=== PATIENT | female | born 1995 | race Caucasian/White ===

== ENCOUNTER 2018-04-12 12:19 | Inpatient (IN) | payer BC ==
[2018-04-12] MEDS ORDERED: Sodium Chloride 0.9% 10 ML Syringe FLUSH PRN (12:43)
[2018-04-12] MEDS ORDERED: Nalbuphine 20 MG/ML 1 ML Syringe IVPUSH PRN (12:43)
[2018-04-12] MEDS ORDERED: Ondansetron 4 MG/2 ML SDV IVPUSH PRN (12:43)
[2018-04-12] MEDS ORDERED: Oxytocin/Lactated Ringers 10 UNIT/1,000 ML BAG IV SCH ×2 (12:45→21:15)
--- NOTE | 2018-04-12 12:46 | PCM.LDHP ---
L&D History of Present Illness - General Date of Service: 04/12/18 Admit Problem/Dx: Patient Status Order with Admit Dx/Problem 04/12/18 12:26 Patient Status [ADT] Routine 04/12/18 12:43 Patient Status [ADT] Routine Admission Diagnosis/Problem Admission Diagnosis/Problem Normal in third trimester Source of Information: Patient History Limitations: Reports: No Limitations - History of Present Illness Introduction:: Carrie is a 22-year-old at 39-5/7 weeks gestation who presents today in labor. States contractions started early this morning and have been progressively getting stronger and closer together. No loss of fluid. No vaginal bleeding. Past Medical History [employer] SU[employer]OR History: Reports: , Spontaneous : 3 Para: 0 LMP (Approximate): Psychiatric History: Reports: Depression, Eating Disorders - Past Surgical History Female Surgical History: Reports: D&C Social & Family History - Tobacco Use Smoking Status *Q: Never Smoker - Alcohol Use Alcohol Use History: No - Recreational Drug Use Recreational Drug Use: No H&P Review of Systems - Review of Systems: Review Of Systems: See Below General: Reports: No Symptoms Pulmonary: Reports: No Symptoms Cardiovascular: Reports: No Symptoms Gastrointestinal: Reports: Abdominal Pain Genitourinary: Reports: No Symptoms Musculoskeletal: Reports: No Symptoms Neurological: Reports: No Symptoms L&D Exam - Exam Exam: See Below - OB Specific Contraction Intensity: Moderate Movement: Active Heart Tones: Present Heart Tones per Min: 125 Heart Rate (FHR) Variability: Moderate (6-25 bmp) Presentation: Vertex - Almazan Score Almazan Score Cervix Position: Posterior Almazan Score Consistency: Soft Almazan Score Effacement: >80% Almazan Score Dilation: 3-4 cm Almazan Score 's Station: -1 ,0 Almazan Score Total: 9 - Exam General: Alert, Oriented, Cooperative Lungs: Clear to Auscultation, Normal Respiratory Effort Cardiovascular: Regular Rate, Regular Rhythm GI/Abdominal Exam: Soft, Non-Tender Genitourinary: Normal external exam Extremities: Normal Inspection Skin: Warm, Dry, Intact - Problem List (1) 39 weeks gestation of SNOMED Code(s): 13961416 ICD Code: Z3A.39 - 39 WEEKS GESTATION OF Status: Acute Current Visit: Yes (2) GBS (group B Streptococcus carrier), +RV culture, currently SNOMED Code(s): 3154669148339, 823101440, 1719289656192 ICD Code: O99.820 - STREPTOCOCCUS B CARRIER STATE COMPLICATING Status: Acute Current Visit: Yes (3) Rh negative state in antepartum period SNOMED Code(s): 129984804 ICD Code: O09.899 - SUPERVISION OF OTHER HIGH RISK PREGNANCIES, UNSP TRIMESTER; Z67.91 - UNSPECIFIED BLOOD TYPE, RH NEGATIVE Status: Acute Current Visit: Yes (4) Normal labor SNOMED Code(s): 92692021 ICD Code: O80 - ENCOUNTER FOR FULL-TERM UNCOMPLICATED DELIVERY; Z37.9 - OUTCOME OF DELIVERY, UNSPECIFIED Status: Acute Current Visit: Yes Problem List Initiated/Reviewed/Updated: Yes Orders Last 24hrs: Active Orders 24 hr Category Date Time Status Patient Status [ADT] Routine ADT 04/12/18 12:26 Active Patient Status [ADT] Routine ADT 04/12/18 12:43 Ordered Activity as Tolerated [RC] PFP Care 04/12/18 12:43 Ordered Communication Order [RC] ASDIRECTED Care 04/12/18 12:43 Ordered Heart Tones [RC] ASDIRECTED Care 04/12/18 12:43 Ordered Non Stress Test [RC] PER UNIT ROUTINE Care 04/12/18 12:26 Ordered Notify Provider [RC] PFP Care 04/12/18 12:43 Ordered Notify Provider [RC] PRN Care 04/12/18 12:43 Ordered Peripheral IV Care [RC] . DIRECTED Care 04/12/18 12:43 Ordered Vital Signs [RC] PER UNIT ROUTINE Care 04/12/18 12:26 Ordered Vital Signs [RC] PER UNIT ROUTINE Care 04/12/18 12:43 Ordered Regular Diet [DIET] Diet 04/12/18 Lunch Ordered CBC W/O DIFF,HEMOGRAM [HEME] Stat Lab 04/12/18 12:43 Ordered RAPID PLASMA REAGIN,RPR [CHEM] Stat Lab 04/12/18 12:43 Ordered TYPE AND SCREEN [BBK] Stat Lab 04/12/18 12:43 Ordered Lactated Ringers [Ringers, Lactated] 1,000 ml Med 04/12/18 12:45 Ordered IV ASDIRECTED Nalbuphine [Nubain] Med 04/12/18 12:43 Ordered 10 mg IVPUSH Q2H PRN Ondansetron [Zofran] Med 04/12/18 12:43 Ordered 4 mg IVPUSH Q4H PRN Oxytocin/Lactated Ringers [Pitocin in LR 10 Units/1,000 Med 04/12/18 12:45 Ordered ML] 10 unit in 1,000 ml IV .CONTINUOUS Penicillin G Potassium [Pfizerpen] 2.5 millunits Med 04/12/18 12:45 Ordered Sodium Chloride 0.9% [Normal Saline] 100 ml IV Q4H Penicillin G Potassium [Pfizerpen] 5 millunits Med 04/12/18 12:45 Ordered Sodium Chloride 0.9% [Normal Saline] 100 ml IV ONETIME Sodium Chloride 0.9% [Saline Flush] Med 04/12/18 12:43 Ordered 10 ml FLUSH ASDIRECTED PRN Electronic Heart Tones Ext w TOCO [WOMSER] Oth 04/12/18 12:43 Ordered Routine Electronic Heart Tones Internal [WOMSER] Per Unit Ot 04/12/18 12:43 Ordered Routine Peripheral IV Insertion Adult [OM.PC] Routine Oth 04/12/18 12:43 Ordered Resuscitation Status Routine Resus Stat 04/12/18 12:26 Ordered Medication Orders Lactated Ringer's (Ringers, Lactated) 1,000 mls @ 100 mls/hr IV ASDIRECTED BRAYAN Penicillin G Potassium 5 (millunits/ Sodium Chloride) 100 mls @ 55 mls/hr IV ONETIME BRAYAN Penicillin G Potassium 2.5 (millunits/ Sodium Chloride) 100 mls @ 55 mls/hr IV Q4H BRAYAN Oxytocin/Lactated Ringer's (Pitocin In Lr 10 Units/1,000 Ml) 10 unit in 1,000 mls @ 500 mls/hr IV .CONTINUOUS BRAYAN Nalbuphine HCl (Nubain) 10 mg IVPUSH Q2H PRN PRN Reason: Pain (moderate 4-6) Ondansetron HCl (Zofran) 4 mg IVPUSH Q4H PRN PRN Reason: Nausea/Vomiting Sodium Chloride (Saline Flush) 10 ml FLUSH ASDIRECTED PRN PRN Reason: Keep Vein Open Assessment/Plan Comment:: Patient is a 22-year-old at 39-5/7 weeks gestation who presents in labor * CBC, type and screen, RPR * GBS positive, will start penicillin for prophylaxis * Pain management per patient preference * Rh-, will assess baby's blood type following delivery to see if Rhogam required * Anticipate
--- NOTE | 2018-04-12 13:56 | PCM.PREANE ---
Preanesthetic Assessment - Anesthesia/Transfusion/Family Hx Anesthesia History: Prior Anesthesia Without Reaction Family History of Anesthesia Reaction: No Transfusion History: No Prior Transfusion(s) - Review of Systems General: No Symptoms Pulmonary: No Symptoms Cardiovascular: No Symptoms Gastrointestinal: No Symptoms Neurological: No Symptoms Other: Reports: None - Physical Assessment Pulse: 89 O2 Sat by Pulse Oximetry: 100 Respiratory Rate: 16 Blood Pressure: 137/83 Temperature: 36.6 C Vital Signs: Last Vital Signs Temp 36.6 C 04/12/18 12:35 Pulse 79 04/12/18 12:35 Resp 16 04/12/18 12:35 BP 137/83 04/12/18 12:35 Pulse Ox 100 04/12/18 12:35 Height: 1.75 m Weight: 77.337 kg ASA Class: 2 Mental Status: Alert & Oriented x3 Airway Class: Mallampati = 1 Dentition: Reports: Normal Dentition Thyro-Mental Finger Breadths: 3 Mouth Opening Finger Breadths: 3 ROM/Head Extension: Full Lungs: Clear to Auscultation, Normal Respiratory Effort Cardiovascular: Regular Rate, Regular Rhythm - Lab Values: Laboratory Last Values WBC 13.76 K/mm3 (3.98-10.04) H 04/12/18 12:57 RBC 3.96 M/mm3 (3.98-5.22) L 04/12/18 12:57 Hgb 10.6 gm/L (11.2-15.7) L 04/12/18 12:57 Hct 32.5 % (34.1-44.9) L 04/12/18 12:57 MCV 82.1 fl (79.4-94.8) 04/12/18 12:57 MCH 26.8 pg (25.6-32.2) 04/12/18 12:57 MCHC 32.6 g/dl (32.2-35.5) 04/12/18 12:57 RDW Std Deviation 41.2 fL (36.4-46.3) 04/12/18 12:57 Plt Count 318 K/mm3 (182-369) 04/12/18 12:57 MPV 8.8 fl (9.4-12.3) L 04/12/18 12:57 Blood Type O NEGATIVE 04/12/18 12:57 Gel Antibody Screen Positive 04/12/18 12:57 - Allergies Allergies/Adverse Reactions: Allergies Allergy/AdvReac Type Severity Reaction Status Date / Time No Known Allergies Allergy Verified 04/12/18 13:30 - Anesthesia Plan Pre-Op Medication Ordered: None - Acknowledgements Anesthesia Type Planned: Epidural Pt an Appropriate Candidate for the Planned Anesthesia: Yes Alternatives and Risks of Anesthesia Discussed w Pt/Guardian: Yes Pt/Guardian Understands and Agrees with Anesthesia Plan: Yes PreAnesthesia Questionnaire Gastrointestinal History: Reports: GERD 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: , 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 Psychiatric History: Reports: Depression, Eating Disorders - Past Surgical History Female Surgical History: Reports: D&C - SUBSTANCE USE Smoking Status *Q: Never Smoker Second Hand Smoke Exposure: No Recreational Drug Use History: No - CURRENT (IN HOUSE) MEDS Current Meds: Current Medications Lactated Ringer's (Ringers, Lactated) 1,000 mls @ 100 mls/hr IV ASDIRECTED BRAYAN Penicillin G Potassium 5 (millunits/ Sodium Chloride) 100 mls @ 55 mls/hr IV ONETIME BRAYAN Penicillin G Potassium 2.5 (millunits/ Sodium Chloride) 100 mls @ 55 mls/hr IV Q4H BRAYAN Oxytocin/Lactated Ringer's (Pitocin In Lr 10 Units/1,000 Ml) 10 unit in 1,000 mls @ 500 mls/hr IV .CONTINUOUS BRAYAN Nalbuphine HCl (Nubain) 10 mg IVPUSH Q2H PRN PRN Reason: Pain (moderate 4-6) Ondansetron HCl (Zofran) 4 mg IVPUSH Q4H PRN PRN Reason: Nausea/Vomiting Sodium Chloride (Saline Flush) 10 ml FLUSH ASDIRECTED PRN PRN Reason: Keep Vein Open
[2018-04-12] MEDS ORDERED: ePHEDrine 50 MG/ML SDV IVPUSH PRN (13:57)
[2018-04-12] MEDS ORDERED: fentaNYL 100 MCG/2 ML SDV EPIDUR PRN (13:57)
[2018-04-12] MEDS ORDERED: diphenhydrAMINE 50 MG/ML SDV IVPUSH PRN (13:57)
[2018-04-12] MEDS ORDERED: Bupivacaine/fentaNYL/NS 100 ML Bag EPIDUR SCH (14:00)
[2018-04-12] MEDS ORDERED: Penicillin G Potassium 5 MILLUNITS in Sodium Chloride 0.9% 100 ML IV SCH (14:00)
[2018-04-12] MEDS: Lactated Ringers 1,000 ML IV SCH ×3 (14:02→19:53)
--- NOTE | 2018-04-12 17:14 | PCM.PNLD ---
Labor Progress Note - VS & Meds Vital Signs: Last Vital Signs Temp 36.6 C 04/12/18 13:56 Pulse 89 04/12/18 13:56 Resp 16 04/12/18 13:56 BP 137/83 04/12/18 13:56 Pulse Ox 100 04/12/18 13:56 Active Medications: Current Medications Diphenhydramine HCl (Benadryl) 25 mg IVPUSH Q6H PRN PRN Reason: Itching Ephedrine Sulfate (Ephedrine Sulfate) 5 mg IVPUSH ASDIRECTED PRN PRN Reason: HYPOTENTSION Fentanyl (Sublimaze) 100 mcg EPIDUR Q3H PRN PRN Reason: Pain Last Admin: 04/12/18 16:40 Dose: 100 mcg Fentanyl/Bupivacaine HCl (Fentanyl/Bupivacaine/Ns 2 Mcg-0.125% 100 Ml) 100 ml EPIDUR ASDIRECTED BRAYAN Last Admin: 04/12/18 16:41 Dose: 100 ml Lactated Ringer's (Ringers, Lactated) 1,000 mls @ 100 mls/hr IV ASDIRECTED BRAYAN Last Admin: 04/12/18 16:18 Dose: 100 mls/hr Penicillin G Potassium 5 (millunits/ Sodium Chloride) 100 mls @ 55 mls/hr IV ONETIME BRAYAN Last Admin: 04/12/18 14:02 Dose: 55 mls/hr Penicillin G Potassium 2.5 (millunits/ Sodium Chloride) 100 mls @ 55 mls/hr IV Q4H BRAYAN Oxytocin/Lactated Ringer's (Pitocin In Lr 10 Units/1,000 Ml) 10 unit in 1,000 mls @ 500 mls/hr IV .CONTINUOUS BRAYAN Nalbuphine HCl (Nubain) 10 mg IVPUSH Q2H PRN PRN Reason: Pain (moderate 4-6) Ondansetron HCl (Zofran) 4 mg IVPUSH Q4H PRN PRN Reason: Nausea/Vomiting Sodium Chloride (Saline Flush) 10 ml FLUSH ASDIRECTED PRN PRN Reason: Keep Vein Open - Uterine Contractions Uterine Monitoring Mode: External [place] Contraction Intensity: Moderate - Monitoring Monitor Mode: External Ultrasound Heart Rate (FHR) Baseline: 130 Heart Rate (FHR) Variability: Moderate (6-25 bmp) Accelerations: Present, 15x15 Decelerations: None Strip Review: Category I - Vaginal Exam Dilation (cm): 4 Effacement (Percent): 80 Station: 0 Cervical Position: Midposition - Labor Progress (Free Text) Labor Progress: Doing well. Comfortable with epidural. AROM performed. Continue present management
[2018-04-12] MEDS: Penicillin G Potassium 2.5 MILLUNITS in Sodium Chloride 0.9% 100 ML IV SCH (18:32)
[2018-04-12] MEDS ORDERED: Bupivacaine 0.25% 10 ML SDV ONE (22:00)
--- NOTE | 2018-04-12 22:19 | PCM.DEL ---
L & D Note - General Info Date of Service: 04/12/18 - Delivery Note Labor: Spontaneous, Augmented by ARM Delivery Outcome: Livebirth Infant Delivery Method: Spontaneous Vaginal Delivery-Single Infant Delivery Mode: Vacuum Extraction Presentation: Right Occiput Anterior (NANCY) Nuchal Cord: None Anesthesia Type: Epidural Amniotic Fluid Description: Clear Episiotomy Type: None Laceration: None Placenta: Intact, Spontaneous Cord: 3 Vessels Estimated Blood Loss: 250 Resuscitation Needed: Yes [place]: Bulb Syringe, Stimulated, Warmed, Warner Used, Warmer Used Score 1 min: 7 Score 5 min: 9 Delivery Comments (Free Text/Narrative):: The patient was pushing in the dorsal lithotomy position. Sterile vaginal exam complete/complete/+3 station. head in NANCY presentation. Maternal pushing effort was good and the pelvis was felt to be adequate for an instrument assisted delivery. Given concerns for compromise the decision was made to proceed with vacuum assisted vaginal delivery. The mushroom cup was placed without difficulty with care to avoid the vaginal side braswell. Subsequent vacuum assisted vaginal delivery with pushing over 2 minutes. Total pressure applied 550 mm Hg. Total pop offs 0. Suction was removed following delivery of the head. No nuchal cord present. The remainder of the delivered without difficulty. The umbilical cord was clamped and cut and the was placed on maternal abdomen. Placenta allowed time to separate and expelled intact. Inspection of the perineum following delivery with no lacerations. - General Info Date of Service: 04/13/18 - Patient Data Vitals - Most Recent: Last Vital Signs Temp 36.6 C 04/12/18 13:56 Pulse 89 04/12/18 13:56 Resp 16 04/12/18 13:56 BP 137/83 04/12/18 13:56 Pulse Ox 100 04/12/18 13:56 Weight - Most Recent: 77.337 kg I&O - Last 24 Hours: Intake & Output 04/12/18 04/12/18 04/12/18 06:59 14:59 22:59 Intake Total 1100 Balance 1100 Lab Results Last 24 Hours: Laboratory Results - last 24 hr 04/12/18 04/12/18 Range/Units 12:57 12:57 WBC 13.76 H (3.98-10.04) K/mm3 RBC 3.96 L (3.98-5.22) M/mm3 Hgb 10.6 L (11.2-15.7) gm/L Hct 32.5 L (34.1-44.9) % MCV 82.1 (79.4-94.8) fl MCH 26.8 (25.6-32.2) pg MCHC 32.6 (32.2-35.5) g/dl RDW Std Deviation 41.2 (36.4-46.3) fL Plt Count 318 (182-369) K/mm3 MPV 8.8 L (9.4-12.3) fl Blood Type O NEGATIVE Gel Antibody Screen Positive Med Orders - Current: Current Medications Diphenhydramine HCl (Benadryl) 25 mg IVPUSH Q6H PRN PRN Reason: Itching Ephedrine Sulfate (Ephedrine Sulfate) 5 mg IVPUSH ASDIRECTED PRN PRN Reason: HYPOTENTSION Fentanyl (Sublimaze) 100 mcg EPIDUR Q3H PRN PRN Reason: Pain Last Admin: 04/12/18 16:40 Dose: 100 mcg Fentanyl/Bupivacaine HCl (Fentanyl/Bupivacaine/Ns 2 Mcg-0.125% 100 Ml) 100 ml EPIDUR ASDIRECTED BRAYAN Last Admin: 04/12/18 16:41 Dose: 100 ml Lactated Ringer's (Ringers, Lactated) 1,000 mls @ 100 mls/hr IV ASDIRECTED BRAYAN Last Admin: 04/12/18 19:53 Dose: 100 mls/hr Penicillin G Potassium 5 (millunits/ Sodium Chloride) 100 mls @ 55 mls/hr IV ONETIME BRAYAN Last Admin: 04/12/18 14:02 Dose: 55 mls/hr Penicillin G Potassium 2.5 (millunits/ Sodium Chloride) 100 mls @ 55 mls/hr IV Q4H BRAYAN Last Admin: 04/12/18 18:32 Dose: 55 mls/hr Oxytocin/Lactated Ringer's (Pitocin In Lr 10 Units/1,000 Ml) 10 unit in 1,000 mls @ 500 mls/hr IV .CONTINUOUS BRAYAN Oxytocin/Lactated Ringer's (Pitocin In Lr 10 Units/1,000 Ml) 10 unit in 1,000 mls @ 12 mls/hr IV TITRATE BRAYAN; Protocol Last Admin: 04/12/18 21:17 Dose: 2 munits/min, 12 mls/hr Nalbuphine HCl (Nubain) 10 mg IVPUSH Q2H PRN PRN Reason: Pain (moderate 4-6) Ondansetron HCl (Zofran) 4 mg IVPUSH Q4H PRN PRN Reason: Nausea/Vomiting Sodium Chloride (Saline Flush) 10 ml FLUSH ASDIRECTED PRN PRN Reason: Keep Vein Open - Problem List & Annotations (1) 39 weeks gestation of SNOMED Code(s): 35746184 Code(s): Z3A.39 - 39 WEEKS GESTATION OF Status: Acute Current Visit: Yes (2) GBS (group B Streptococcus carrier), +RV culture, currently SNOMED Code(s): 1403500794315, 743180297, 1062871485388 Code(s): O99.820 - STREPTOCOCCUS B CARRIER STATE COMPLICATING Status: Acute Current Visit: Yes (3) Rh negative state in antepartum period SNOMED Code(s): 634109992 Code(s): O09.899 - SUPERVISION OF OTHER HIGH RISK PREGNANCIES, UNSP TRIMESTER ; Z67.91 - UNSPECIFIED BLOOD TYPE, RH NEGATIVE Status: Acute Current Visit: Yes (4) Normal labor SNOMED Code(s): 11724493 Code(s): O80 - ENCOUNTER FOR FULL-TERM UNCOMPLICATED DELIVERY; Z37.9 - OUTCOME OF DELIVERY, UNSPECIFIED Status: Acute Current Visit: Yes - Problem List Review Problem List Initiated/Reviewed/Updated: Yes - My Orders Last 24 Hours: My Active Orders 04/12/18 12:26 Patient Status [ADT] Routine Non Stress Test [RC] PER UNIT ROUTINE Vital Signs [RC] PER UNIT ROUTINE Resuscitation Status Routine 04/12/18 12:43 Patient Status [ADT] Routine Activity as Tolerated [RC] PFP Communication Order [RC] ASDIRECTED Heart Tones [RC] ASDIRECTED Notify Provider [RC] PFP Notify Provider [RC] PRN Vital Signs [RC] PER UNIT ROUTINE Nalbuphine [Nubain] 10 mg IVPUSH Q2H PRN Ondansetron [Zofran] 4 mg IVPUSH Q4H PRN Sodium Chloride 0.9% [Saline Flush] 10 ml FLUSH ASDIRECTED PRN Electronic Heart Tones Ext w TOCO [WOMSER] Routine Electronic Heart Tones Internal [WOMSER] Per Unit Routine Peripheral IV Insertion Adult [OM.PC] Routine 04/12/18 12:45 Lactated Ringers [Ringers, Lactated] 1,000 ml IV ASDIRECTED Oxytocin/Lactated Ringers [Pitocin in LR 10 Units/1,000 ML] 10 unit in 1,000 ml IV .CONTINUOUS 04/12/18 12:57 ANTIBODY IDENTIFICATION [BBK] Stat PATIENT RETYPE [BBK] Stat RAPID PLASMA REAGIN,RPR [CHEM] Stat TYPE AND SCREEN [BBK] Stat 04/12/18 14:00 Penicillin G Potassium [Pfizerpen] 5 millunits Sodium Chloride 0.9% [Normal Saline] 100 ml IV ONETIME 04/12/18 18:00 Penicillin G Potassium [Pfizerpen] 2.5 millunits Sodium Chloride 0.9% [Normal Saline] 100 ml IV Q4H 04/12/18 21:15 Oxytocin/Lactated Ringers [Pitocin in LR 10 Units/1,000 ML] 10 unit in 1,000 ml IV TITRATE 04/12/18 Lunch Regular Diet [DIET] - Assessment Assessment:: 22 y/o who is PPD#0 from VAVD from 39 5/7 wks - Plan Plan:: VAVD * Patient with fever to 102 immediately following delivery. Will give one dose of Clindamycin and Gentamicin. Continue to monitor closely. Pediatrics to be made aware. * Encourage breast feeding * Routine cares * Rh negative. Baby Rh positive. Will need Rhogam * Discharge home tomorrow
[2018-04-12] MEDS ORDERED: Acetaminophen 325 MG Tab PO PRN (22:33)
[2018-04-12] MEDS ORDERED: Docusate Sodium 100 MG Cap PO PRN (22:33)
[2018-04-12] MEDS ORDERED: Witch Hazel Medicated Pads 100/Jar TOP PRN (22:33)
[2018-04-12] MEDS ORDERED: Lanolin 100% Cream 7 GM Tube TOP PRN (22:33)
[2018-04-12] MEDS ORDERED: Benzocaine/Menthol 20%-0.5% Spray 56 GM Canister TOP PRN (22:33)
[2018-04-12] MEDS: Ibuprofen 600 MG Tab PO PRN (22:37)
[2018-04-13] MEDS ORDERED: Clindamycin Phosphate 900 MG in Sodium Chloride 0.9% 100 ML IV SCH ×2 (02:30→06:00)
[2018-04-13] MEDS: Penicillin G Potassium 2.5 MILLUNITS in Sodium Chloride 0.9% 100 ML IV SCH (05:50)
--- NOTE | 2018-04-13 07:37 | PCM.PNPP ---
- General Info Date of Service: 04/13/18 Functional Status: Reports: Pain Controlled, Tolerating Diet, Ambulating, Urinating - Review of Systems General: Reports: No Symptoms Pulmonary: Reports: No Symptoms Cardiovascular: Reports: No Symptoms Gastrointestinal: Reports: No Symptoms Genitourinary: Reports: No Symptoms Musculoskeletal: Reports: No Symptoms Neurological: Reports: No Symptoms - Patient Data Vital Signs - Most Recent: Last Vital Signs Temp 36.6 C 04/13/18 02:46 Pulse 65 04/13/18 02:46 Resp 14 04/13/18 02:46 BP 118/85 04/13/18 02:46 Pulse Ox 97 04/13/18 02:46 Weight - Most Recent: 77.337 kg I&O - Last 24 Hours: Intake & Output 04/12/18 04/13/18 04/13/18 22:59 06:59 14:59 Intake Total 1100 100 Balance 1100 100 Lab Results - Last 24 Hours: Laboratory Results - last 24 hr 04/12/18 04/12/18 04/13/18 Range/Units 12:57 12:57 03:27 WBC 13.76 H (3.98-10.04) K/mm3 RBC 3.96 L (3.98-5.22) M/mm3 Hgb 10.6 L (11.2-15.7) gm/L Hct 32.5 L (34.1-44.9) % MCV 82.1 (79.4-94.8) fl MCH 26.8 (25.6-32.2) pg MCHC 32.6 (32.2-35.5) g/dl RDW Std Deviation 41.2 (36.4-46.3) fL Plt Count 318 (182-369) K/mm3 MPV 8.8 L (9.4-12.3) fl Blood Type O NEGATIVE O NEGATIVE Gel Antibody Screen Positive Positive Rhogam Indicated Yes, baby rh unknown H Med Orders - Current: Current Medications Acetaminophen (Tylenol) 650 mg PO Q4H PRN PRN Reason: mild pain or fever Last Admin: 04/13/18 00:10 Dose: 650 mg Benzocaine/Menthol (Dermoplast Pain Relief [place]) 0 gm TOP ASDIRECTED PRN PRN Reason: Perineal Comfort Measure Last Admin: 04/13/18 00:09 Dose: 1 canister Docusate Sodium (Colace) 100 mg PO BID PRN PRN Reason: Constipation Emollient Ointment (Lansinoh Hpa) 0 gm TOP ASDIRECTED PRN PRN Reason: Sore Nipples Gentamicin Sulfate (Pharmacy To Dose - Gentamicin) 0 dose .XX ASDIRECTED PRN PRN Reason: RX TO DOSE GENTAMICIN Clindamycin Phosphate 900 mg/ (Sodium Chloride) 106 mls @ 100 mls/hr IV Q8H [facility] Last Admin: 04/13/18 02:41 Dose: 100 mls/hr Gentamicin Sulfate 380 mg/ (Sodium Chloride) 109.5 mls @ 219 mls/hr IV Q24H [facility] Last Admin: 04/13/18 05:00 Dose: 219 mls/hr Ibuprofen (Motrin) 600 mg PO Q6H PRN PRN Reason: Mild pain or fever Last Admin: 04/12/18 22:37 Dose: 600 mg Witch Bindu (Tucks) 1 pad TOP ASDIRECTED PRN PRN Reason: Hemorrhoid pain Last Admin: 04/13/18 00:09 Dose: 1 tub Discontinued Medications Diphenhydramine HCl (Benadryl) 25 mg IVPUSH Q6H PRN PRN Reason: Itching Ephedrine Sulfate (Ephedrine Sulfate) 5 mg IVPUSH ASDIRECTED PRN PRN Reason: HYPOTENTSION Fentanyl (Sublimaze) 100 mcg EPIDUR Q3H PRN PRN Reason: Pain Last Admin: 04/12/18 16:40 Dose: 100 mcg Fentanyl/Bupivacaine HCl (Fentanyl/Bupivacaine/Ns 2 Mcg-0.125% 100 Ml) 100 ml EPIDUR ASDIRECTED [facility] Last Admin: 04/12/18 16:41 Dose: 100 ml Lactated Ringer's (Ringers, Lactated) 1,000 mls @ 100 mls/hr IV ASDIRECTED [facility] Last Admin: 04/12/18 19:53 Dose: 100 mls/hr Penicillin G Potassium 5 (millunits/ Sodium Chloride) 100 mls @ 55 mls/hr IV ONETIME [facility] Last Admin: 04/12/18 14:02 Dose: 55 mls/hr Penicillin G Potassium 2.5 (millunits/ Sodium Chloride) 100 mls @ 55 mls/hr IV Q4H [facility] Last Admin: 04/13/18 05:50 Dose: Not Given Oxytocin/Lactated Ringer's (Pitocin In Lr 10 Units/1,000 Ml) 10 unit in 1,000 mls @ 500 mls/hr IV .CONTINUOUS [facility] Oxytocin/Lactated Ringer's (Pitocin In Lr 10 Units/1,000 Ml) 10 unit in 1,000 mls @ 12 mls/hr IV TITRATE [facility]; Protocol Last Admin: 04/12/18 21:17 Dose: 2 munits/min, 12 mls/hr Nalbuphine HCl (Nubain) 10 mg IVPUSH Q2H PRN PRN Reason: Pain (moderate 4-6) Ondansetron HCl (Zofran) 4 mg IVPUSH Q4H PRN PRN Reason: Nausea/Vomiting Sodium Chloride (Saline Flush) 10 ml FLUSH ASDIRECTED PRN PRN Reason: Keep Vein Open - Interaction Infant Disposition, : [place] in Room with Family Infant Interaction: Holding Infant Feeding: Attempted ; Nursed Fair/Poor Support Person: Significant Other - Recovery Exam Fundal Tone: Firm Fundal Level: 1 Fingerbreadths Below Umbilicus Fundal Placement: Midline Lochia Amount: Small Lochia Color: Rubra/Red Perineum Description: Intact, Minimal Bruising/Swelling Episiotomy/Laceration: None Bladder Status: Voiding - Exam General: Alert, Oriented, Cooperative GI/Abdominal Exam: Soft, Non-Tender Extremities: Normal Inspection Skin: Warm, Dry, Intact - Problem List & Annotations (1) 39 weeks gestation of SNOMED Code(s): 26236507 Code(s): Z3A.39 - 39 WEEKS GESTATION OF Status: Acute Current Visit: Yes (2) GBS (group B Streptococcus carrier), +RV culture, currently SNOMED Code(s): 1817192184896, 156810111, 7595270515087 Code(s): O99.820 - STREPTOCOCCUS B CARRIER STATE COMPLICATING Status: Acute Current Visit: Yes (3) Rh negative state in antepartum period SNOMED Code(s): 166358837 Code(s): O09.899 - SUPERVISION OF OTHER HIGH RISK PREGNANCIES, UNSP TRIMESTER ; Z67.91 - UNSPECIFIED BLOOD TYPE, RH NEGATIVE Status: Acute Current Visit: Yes (4) Normal labor SNOMED Code(s): 93866404 Code(s): O80 - ENCOUNTER FOR FULL-TERM UNCOMPLICATED DELIVERY; Z37.9 - OUTCOME OF DELIVERY, UNSPECIFIED Status: Acute Current Visit: Yes (5) Vacuum extractor delivery, delivered SNOMED Code(s): 134953912 Code(s): O66.5 - ATTEMPTED APPLICATION OF VACUUM EXTRACTOR AND FORCEPS Status: Acute Current Visit: Yes (6) Chorioamnionitis SNOMED Code(s): 71837215 Code(s): O41.1290 - CHORIOAMNIONITIS, UNSP TRIMESTER, NOT APPLICABLE OR UNSP Status: Acute Current Visit: Yes Qualifiers: Fetus number: single or unspecified fetus Trimester: third trimester Qualified Code(s): O41.1230 - Chorioamnionitis, third trimester, not applicable or unspecified - Problem List Review Problem List Initiated/Reviewed/Updated: Yes - My Orders Last 24 Hours: My Active Orders 04/12/18 12:26 Vital Signs [RC] PER UNIT ROUTINE Resuscitation Status Routine 04/12/18 12:43 Heart Tones [RC] ASDIRECTED Vital Signs [RC] PER UNIT ROUTINE 04/12/18 12:57 ANTIBODY IDENTIFICATION [BBK] Stat PATIENT RETYPE [BBK] Stat RAPID PLASMA REAGIN,RPR [CHEM] Stat TYPE AND SCREEN [BBK] Stat 04/12/18 22:33 Activity as Tolerated [RC] PER UNIT ROUTINE Vital Signs [RC] 03,09,15,21 Acetaminophen [Tylenol] 650 mg PO Q4H PRN Benzocaine/Menthol [Dermoplast Pain Relief [place]] See Dose Instructions TOP ASDIRECTED PRN Docusate Sodium [Colace] 100 mg PO BID PRN Ibuprofen [Motrin] 600 mg PO Q6H PRN Lanolin [Lansinoh HPA] See Dose Instructions TOP ASDIRECTED PRN Witch Bindu [Tucks] 1 pad TOP ASDIRECTED PRN Assess Lochia [WOMSER] Per Unit Routine Assess Uterine Involution [WOMSER] Per Unit Routine Breast Pump [WOMSER] Per Unit Routine Heat Therapy [OM.PC] PRN Ice Therapy [OM.PC] Per Unit Routine Perineal Care [OM.PC] Per Unit Routine Peripheral IV Discontinue [OM.PC] Routine Sitz Bath [OM.PC] Per Unit Routine 04/12/18 Dinner Regular Diet [DIET] 04/13/18 02:00 Gentamicin Pharmacy to Dose [Pharmacy to Dose - Gentamicin] See Dose Instructions .XX ASDIRECTED PRN 04/13/18 02:30 Clindamycin Phosphate [Cleocin] 900 mg Sodium Chloride 0.9% [Normal Saline] 100 ml IV Q8H 04/13/18 03:27 SCREEN [BBK] Routine RH IMMUNE GLOBULIN [BBK] Routine RHOGAM, [RHIG WORKUP, ] [BBK] Routine 04/13/18 03:30 Gentamicin 380 mg Sodium Chloride 0.9% [Normal Saline] 100 ml IV Q24H 04/13/18 22:33 Heat Therapy [OM.PC] PRN - Assessment Assessment:: 22 y/o who is PPD#1 from VAVD from 39 5/7 wks - Plan Plan:: VAVD * S/p Clindamycin and Gentamicin. Continue to monitor closely. * Encourage breast feeding * Routine cares * Rh negative. Baby Rh positive. Will need Rhogam * Discharge home tomorrow
--- NOTE | 2018-04-13 11:55 | PCM48HPAN ---
Post Anesthesia Note - EVALUATION WITHIN 48HRS OF ANESTHETIC Vital Signs in Normal Range: Yes Patient Participated in Evaluation: Yes Respiratory Function Stable: Yes Airway Patent: Yes Cardiovascular Function Stable: Yes Hydration Status Stable: Yes Pain Control Satisfactory: Yes Nausea and Vomiting Control Satisfactory: Yes Mental Status Recovered: Yes Pulse Rate: 92 Resp Rate: 16 Temperature: 96.8 F Blood Pressure: 109/61
[2018-04-13] MEDS: Ibuprofen 600 MG Tab PO PRN ×2 (12:20→21:12)
--- NOTE | 2018-04-14 05:13 | PCM.PNPP ---
- General Info Date of Service: 04/14/18 Functional Status: Reports: Pain Controlled, Tolerating Diet, Ambulating, Urinating - Review of Systems General: Reports: No Symptoms Pulmonary: Reports: No Symptoms Cardiovascular: Reports: No Symptoms Gastrointestinal: Reports: No Symptoms Genitourinary: Reports: No Symptoms Musculoskeletal: Reports: No Symptoms - Patient Data Vital Signs - Most Recent: Last Vital Signs Temp 36.9 C 04/13/18 20:59 Pulse 66 04/13/18 20:59 Resp 16 04/13/18 20:59 BP 119/61 04/13/18 20:59 Pulse Ox 99 04/13/18 20:59 Weight - Most Recent: 77.337 kg I&O - Last 24 Hours: Intake & Output 04/13/18 04/13/18 04/14/18 14:59 22:59 06:59 Intake Total 0 Balance 0 Lab Results - Last 24 Hours: Laboratory Results - last 24 hr 04/12/18 04/13/18 Range/Units 12:57 03:27 RPR Non-reactive (NONREACTIVE) Blood Type O NEGATIVE Gel Antibody Screen Positive Screen 0 ros/5 flds - neg RhIG Candidate? Yes Rhogam Indicated Yes, baby rh unknown H Med Orders - Current: Current Medications Acetaminophen (Tylenol) 650 mg PO Q4H PRN PRN Reason: mild pain or fever Last Admin: 04/13/18 00:10 Dose: 650 mg Benzocaine/Menthol (Dermoplast Pain Relief [place]) 0 gm TOP ASDIRECTED PRN PRN Reason: Perineal Comfort Measure Last Admin: 04/13/18 00:09 Dose: 1 canister Docusate Sodium (Colace) 100 mg PO BID PRN PRN Reason: Constipation Emollient Ointment (Lansinoh Hpa) 0 gm TOP ASDIRECTED PRN PRN Reason: Sore Nipples Ibuprofen (Motrin) 600 mg PO Q6H PRN PRN Reason: Mild pain or fever Last Admin: 04/13/18 21:12 Dose: 600 mg Witch Bindu (Tucks) 1 pad TOP ASDIRECTED PRN PRN Reason: Hemorrhoid pain Last Admin: 04/13/18 00:09 Dose: 1 tub Discontinued Medications Bupivacaine HCl (Sensorcaine-Mpf 0.25%) 10 ml .ROUTE .STK-MED ONE Stop: 04/12/18 22:01 Diphenhydramine HCl (Benadryl) 25 mg IVPUSH Q6H PRN PRN Reason: Itching Ephedrine Sulfate (Ephedrine Sulfate) 5 mg IVPUSH ASDIRECTED PRN PRN Reason: HYPOTENTSION Fentanyl (Sublimaze) 100 mcg EPIDUR Q3H PRN PRN Reason: Pain Last Admin: 04/12/18 16:40 Dose: 100 mcg Fentanyl/Bupivacaine HCl (Fentanyl/Bupivacaine/Ns 2 Mcg-0.125% 100 Ml) 100 ml EPIDUR ASDIRECTED [facility] Last Admin: 04/12/18 16:41 Dose: 100 ml Gentamicin Sulfate (Pharmacy To Dose - Gentamicin) 0 dose .XX ASDIRECTED PRN PRN Reason: RX TO DOSE GENTAMICIN Lactated Ringer's (Ringers, Lactated) 1,000 mls @ 100 mls/hr IV ASDIRECTED [facility] Last Admin: 04/12/18 19:53 Dose: 100 mls/hr Penicillin G Potassium 5 (millunits/ Sodium Chloride) 100 mls @ 55 mls/hr IV ONETIME [facility] Last Admin: 04/12/18 14:02 Dose: 55 mls/hr Penicillin G Potassium 2.5 (millunits/ Sodium Chloride) 100 mls @ 55 mls/hr IV Q4H [facility] Last Admin: 04/13/18 05:50 Dose: Not Given Oxytocin/Lactated Ringer's (Pitocin In Lr 10 Units/1,000 Ml) 10 unit in 1,000 mls @ 500 mls/hr IV .CONTINUOUS [facility] Oxytocin/Lactated Ringer's (Pitocin In Lr 10 Units/1,000 Ml) 10 unit in 1,000 mls @ 12 mls/hr IV TITRATE [facility]; Protocol Last Admin: 04/12/18 21:17 Dose: 2 munits/min, 12 mls/hr Clindamycin Phosphate 900 mg/ (Sodium Chloride) 106 mls @ 100 mls/hr IV Q8H [facility] Last Admin: 04/13/18 02:41 Dose: 100 mls/hr Gentamicin Sulfate 380 mg/ (Sodium Chloride) 109.5 mls @ 219 mls/hr IV Q24H [facility] Last Admin: 04/13/18 05:00 Dose: 219 mls/hr Nalbuphine HCl (Nubain) 10 mg IVPUSH Q2H PRN PRN Reason: Pain (moderate 4-6) Ondansetron HCl (Zofran) 4 mg IVPUSH Q4H PRN PRN Reason: Nausea/Vomiting Sodium Chloride (Saline Flush) 10 ml FLUSH ASDIRECTED PRN PRN Reason: Keep Vein Open - Interaction Infant Disposition, : in Room with Family Interaction: Holding Infant Infant Feeding: Attempted ; Nursed Fair/Poor Support Person: Significant Other - Recovery Exam Fundal Tone: Firm Fundal Level: 1 Fingerbreadths Below Umbilicus Fundal Placement: Midline Lochia Amount: Scant, Small Lochia Color: Rubra/Red Perineum Description: Intact, Minimal Bruising/Swelling Episiotomy/Laceration: None Bladder Status: Voiding Urinary Elimination: Voided - Exam General: Alert, Oriented, Cooperative GI/Abdominal Exam: Soft, Non-Tender Extremities: Normal Inspection Skin: Warm, Dry, Intact - Problem List & Annotations (1) 39 weeks gestation of SNOMED Code(s): 05723441 Code(s): Z3A.39 - 39 WEEKS GESTATION OF Status: Acute Current Visit: Yes (2) GBS (group B Streptococcus carrier), +RV culture, currently SNOMED Code(s): 0948796976499, 052965181, 2936842622791 Code(s): O99.820 - STREPTOCOCCUS B CARRIER STATE COMPLICATING Status: Acute Current Visit: Yes (3) Rh negative state in antepartum period SNOMED Code(s): 636135939 Code(s): O09.899 - SUPERVISION OF OTHER HIGH RISK PREGNANCIES, UNSP TRIMESTER ; Z67.91 - UNSPECIFIED BLOOD TYPE, RH NEGATIVE Status: Acute Current Visit: Yes (4) Normal labor SNOMED Code(s): 57001823 Code(s): O80 - ENCOUNTER FOR FULL-TERM UNCOMPLICATED DELIVERY; Z37.9 - OUTCOME OF DELIVERY, UNSPECIFIED Status: Acute Current Visit: Yes (5) Vacuum extractor delivery, delivered SNOMED Code(s): 361555550 Code(s): O66.5 - ATTEMPTED APPLICATION OF VACUUM EXTRACTOR AND FORCEPS Status: Acute Current Visit: Yes (6) Chorioamnionitis SNOMED Code(s): 03566525 Code(s): O41.1290 - CHORIOAMNIONITIS, UNSP TRIMESTER, NOT APPLICABLE OR UNSP Status: Acute Current Visit: Yes Qualifiers: Fetus number: single or unspecified fetus Trimester: third trimester Qualified Code(s): O41.1230 - Chorioamnionitis, third trimester, not applicable or unspecified - Problem List Review Problem List Initiated/Reviewed/Updated: Yes - My Orders Last 24 Hours: My Active Orders 04/13/18 22:33 Heat Therapy [OM.PC] PRN 04/14/18 05:13 Ready for Discharge [RC] PER UNIT ROUTINE - Assessment Assessment:: 22 y/o who is PPD#2 from VAVD from 39 5/7 wks - Plan Plan:: VAVD * Encourage breast feeding * Routine cares * Rh negative. Baby Rh positive. S/p Rhogam * Discharge home today
--- NOTE | 2018-04-14 05:14 | PCM.DCSUM1 ---
Discharge Summary - Discharge Data Discharge Date: 04/14/18 Discharge Disposition: Home, Self-Care 01 Condition: Good - Discharge Diagnosis/Problem(s) (1) 39 weeks gestation of SNOMED Code(s): 92421657 ICD Code: Z3A.39 - 39 WEEKS GESTATION OF Status: Acute Current Visit: Yes (2) GBS (group B Streptococcus carrier), +RV culture, currently SNOMED Code(s): 2265622279755, 729559072, 9625328743094 ICD Code: O99.820 - STREPTOCOCCUS B CARRIER STATE COMPLICATING Status: Acute Current Visit: Yes (3) Rh negative state in antepartum period SNOMED Code(s): 368790756 ICD Code: O09.899 - SUPERVISION OF OTHER HIGH RISK PREGNANCIES, UNSP TRIMESTER; Z67.91 - UNSPECIFIED BLOOD TYPE, RH NEGATIVE Status: Acute Current Visit: Yes (4) Normal labor SNOMED Code(s): 99553506 ICD Code: O80 - ENCOUNTER FOR FULL-TERM UNCOMPLICATED DELIVERY; Z37.9 - OUTCOME OF DELIVERY, UNSPECIFIED Status: Acute Current Visit: Yes (5) Vacuum extractor delivery, delivered SNOMED Code(s): 981278950 ICD Code: O66.5 - ATTEMPTED APPLICATION OF VACUUM EXTRACTOR AND FORCEPS Status: Acute Current Visit: Yes (6) Chorioamnionitis SNOMED Code(s): 47602917 ICD Code: O41.1290 - CHORIOAMNIONITIS, UNSP TRIMESTER, NOT APPLICABLE OR UNSP Status: Acute Current Visit: Yes Qualifiers: Fetus number: single or unspecified fetus Trimester: third trimester Qualified Code(s): O41.1230 - Chorioamnionitis, third trimester, not applicable or unspecified - Patient Summary/Data Complications: None Consults: None Recommended Follow-up Testing/Procedures: Follow up in 3-6 weeks for check Hospital Course: 22 y/o presented at 39 5/7 wks gestation in labor. She progressed well to complete dilation without need for augmentation. Did require VAVD for NRFS. This was uncomplicated. See delivery note. Immediately following delivery she did spike a fever and so was started on Gent and Clinda for 1 dose each. she did well and was discharged home on PPD#2 - Patient Instructions Diet: Regular Diet as Tolerated Activity: As Tolerated Activity, Other: Pelvic Rest for 6 weeks Driving: May Drive Today Showering/Bathing: May Shower Showering/Bathing, Other: May Bathe Notify Provider of: Fever, Increased Pain, Swelling and Redness, Drainage, Nausea and/or Vomiting - Discharge Plan Home Medications: Home Meds Docusate Sodium [Colace] 100 mg PO BID PRN cap 04/14/18 [Rx] Ibuprofen [Motrin] 600 mg PO Q6H PRN tablet 04/14/18 [Rx] oJhnathan Ruano [Tucks] 1 pad TOP ASDIRECTED PRN pad 04/14/18 [Rx] Referrals: Maura Mena MD [Primary Care Provider] - (3-6 weeks for check ) - Discharge Summary/Plan Comment DC Time >30 min.: No - Patient Data Vitals - Most Recent: Last Vital Signs Temp 36.9 C 04/13/18 20:59 Pulse 66 04/13/18 20:59 Resp 16 04/13/18 20:59 BP 119/61 04/13/18 20:59 Pulse Ox 99 04/13/18 20:59 Weight - Most Recent: 77.337 kg I&O - Last 24 hours: Intake & Output 04/13/18 04/13/18 04/14/18 14:59 22:59 06:59 Intake Total 0 Balance 0 Lab Results - Last 24 hrs: Laboratory Results - last 24 hr 04/12/18 04/13/18 Range/Units 12:57 03:27 RPR Non-reactive (NONREACTIVE) Blood Type O NEGATIVE Gel Antibody Screen Positive Screen 0 ros/5 flds - neg RhIG Candidate? Yes Rhogam Indicated Yes, baby rh unknown H Med Orders - Current: Current Medications Acetaminophen (Tylenol) 650 mg PO Q4H PRN PRN Reason: mild pain or fever Last Admin: 04/13/18 00:10 Dose: 650 mg Benzocaine/Menthol (Dermoplast Pain Relief [place]) 0 gm TOP ASDIRECTED PRN PRN Reason: Perineal Comfort Measure Last Admin: 04/13/18 00:09 Dose: 1 canister Docusate Sodium (Colace) 100 mg PO BID PRN PRN Reason: Constipation Emollient Ointment (Lansinoh Hpa) 0 gm TOP ASDIRECTED PRN PRN Reason: Sore Nipples Ibuprofen (Motrin) 600 mg PO Q6H PRN PRN Reason: Mild pain or fever Last Admin: 04/13/18 21:12 Dose: 600 mg Witch Bindu (Tucks) 1 pad TOP ASDIRECTED PRN PRN Reason: Hemorrhoid pain Last Admin: 04/13/18 00:09 Dose: 1 tub Discontinued Medications Bupivacaine HCl (Sensorcaine-Mpf 0.25%) 10 ml .ROUTE .STK-MED ONE Stop: 04/12/18 22:01 Diphenhydramine HCl (Benadryl) 25 mg IVPUSH Q6H PRN PRN Reason: Itching Ephedrine Sulfate (Ephedrine Sulfate) 5 mg IVPUSH ASDIRECTED PRN PRN Reason: HYPOTENTSION Fentanyl (Sublimaze) 100 mcg EPIDUR Q3H PRN PRN Reason: Pain Last Admin: 04/12/18 16:40 Dose: 100 mcg Fentanyl/Bupivacaine HCl (Fentanyl/Bupivacaine/Ns 2 Mcg-0.125% 100 Ml) 100 ml EPIDUR ASDIRECTED [facility] Last Admin: 04/12/18 16:41 Dose: 100 ml Gentamicin Sulfate (Pharmacy To Dose - Gentamicin) 0 dose .XX ASDIRECTED PRN PRN Reason: RX TO DOSE GENTAMICIN Lactated Ringer's (Ringers, Lactated) 1,000 mls @ 100 mls/hr IV ASDIRECTED [facility] Last Admin: 04/12/18 19:53 Dose: 100 mls/hr Penicillin G Potassium 5 (millunits/ Sodium Chloride) 100 mls @ 55 mls/hr IV ONETIME [facility] Last Admin: 04/12/18 14:02 Dose: 55 mls/hr Penicillin G Potassium 2.5 (millunits/ Sodium Chloride) 100 mls @ 55 mls/hr IV Q4H [facility] Last Admin: 04/13/18 05:50 Dose: Not Given Oxytocin/Lactated Ringer's (Pitocin In Lr 10 Units/1,000 Ml) 10 unit in 1,000 mls @ 500 mls/hr IV .CONTINUOUS [facility] Oxytocin/Lactated Ringer's (Pitocin In Lr 10 Units/1,000 Ml) 10 unit in 1,000 mls @ 12 mls/hr IV TITRATE [facility]; Protocol Last Admin: 04/12/18 21:17 Dose: 2 munits/min, 12 mls/hr Clindamycin Phosphate 900 mg/ (Sodium Chloride) 106 mls @ 100 mls/hr IV Q8H [facility] Last Admin: 04/13/18 02:41 Dose: 100 mls/hr Gentamicin Sulfate 380 mg/ (Sodium Chloride) 109.5 mls @ 219 mls/hr IV Q24H [facility] Last Admin: 04/13/18 05:00 Dose: 219 mls/hr Nalbuphine HCl (Nubain) 10 mg IVPUSH Q2H PRN PRN Reason: Pain (moderate 4-6) Ondansetron HCl (Zofran) 4 mg IVPUSH Q4H PRN PRN Reason: Nausea/Vomiting Sodium Chloride (Saline Flush) 10 ml FLUSH ASDIRECTED PRN PRN Reason: Keep Vein Open
== END 2018-04-14 21:05 | disposition home or self-care (01) | DRG 560 ==
LOC: JD.OBCHECK 12:19 → JD.OB 12:43 → OBSVTOIN 22:04 → JD.OB 22:04
PROVIDERS: ADMIT Obstetrics & Gynecology; ATTEND Obstetrics & Gynecology
PROC: 10D07Z6 Extraction of Products of Conception, Vacuum, Via Natural or Artificial Opening (ICD-10-PCS; principal; 2018-04-13)
PROC: 10907ZC Drainage of Amniotic Fluid, Therapeutic from Products of Conception, Via Natural or Artificial Opening (ICD-10-PCS; 2018-04-13)
PROC: 00HU33Z Insertion of Infusion Device into Spinal Canal, Percutaneous Approach (ICD-10-PCS; 2018-04-13)
PROC: 3E0R3BZ Introduction of Anesthetic Agent into Spinal Canal, Percutaneous Approach (ICD-10-PCS; 2018-04-13)
PROC: 3E0234Z Introduction of Serum, Toxoid and Vaccine into Muscle, Percutaneous Approach (ICD-10-PCS; 2018-04-14)
DX: O99.824 Streptococcus B carrier state complicating childbirth (principal); O41.1230 Chorioamnionitis, third trimester, not applicable or unspecified; O76 Abnormality in fetal heart rate and rhythm complicating labor and delivery; Z3A.39 39 weeks gestation of pregnancy; Z37.0 Single live birth; O26.893 Other specified pregnancy related conditions, third trimester; Z67.41 Type O blood, Rh negative
CPT/HCPCS: 36415; 51702; 59025; 59409; 85027; 85461; 86592; 86850; 86900; 86901; A9270-GY; J1580; J2540; J2590; J2790; J3010; J7030; J7120

== ENCOUNTER 2020-05-14 04:03 | Inpatient (IN) | payer BC ==
[~2020-05-14 04:03] MED LIST: Bupivacaine 0.25% 10 ML SDV ONE
[2020-05-14] MEDS ORDERED: Nalbuphine 10 MG/ML Syringe IVPUSH PRN (04:33)
[2020-05-14] MEDS ORDERED: Ondansetron 4 MG/2 ML SDV IVPUSH PRN (04:33)
[2020-05-14] MEDS ORDERED: Sodium Chloride 0.9% 10 ML Syringe FLUSH PRN (04:33)
[2020-05-14] MEDS ORDERED: Oxytocin/Lactated Ringers 10 UNIT/1,000 ML BAG IV SCH (04:45)
--- NOTE | 2020-05-14 04:57 | PCM.LDHP ---
L&D History of Present Illness - General Date of Service: 05/14/20 Admit Problem/Dx: Patient Status Order with Admit Dx/Problem 05/14/20 04:18 Patient Status [ADT] Routine 05/14/20 04:34 Patient Status [ADT] Routine Admission Diagnosis/Problem Admission Diagnosis/Problem Source of Information: Patient History Limitations: Reports: No Limitations - History of Present Illness Introduction:: Patient is a 24 y/o at 39 3/7 wks who presents in labor. Doing well. Contractions became bothersome around 0300 this AM. 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 : 4 Para: 1 LMP (Approximate): Psychiatric History: Reports: Eating Disorders (Remission) - Past Surgical History HEENT Surgical History: Reports: Oral Surgery Female Surgical History: Reports: D&C Social & Family History - Family History Family Medical History: Noncontributory - Tobacco Use Smoking Status *Q: Never Smoker - Caffeine Use Caffeine Use: Reports: None - Alcohol Use Alcohol Use History: No - Recreational Drug Use Recreational Drug Use: No H&P Review of Systems - Review of Systems: Review Of Systems: See Below General: Reports: No Symptoms Pulmonary: Reports: No Symptoms Cardiovascular: Reports: No Symptoms Gastrointestinal: Reports: No Symptoms Genitourinary: Reports: No Symptoms Musculoskeletal: Reports: No Symptoms Psychiatric: Reports: No Symptoms Neurological: Reports: No Symptoms L&D Exam - Exam Exam: See Below - Vital Signs Weight: 77.7 kg - OB Specific Contraction Intensity: Moderate to Strong Movement: Active Heart Tones: Present Heart Tones per Min: 125 Heart Rate (FHR) Variability: Moderate (6-25 bmp) Presentation: Vertex - Almazan Score Almazan Score Cervix Position: Midposition Almazan Score Consistency: Soft Almazan Score Effacement: >80% Almazan Score Dilation: > 5 cm Almazan Score Infant's Station: -1 ,0 Almazan Score Total: 11 - Exam General: Alert, Oriented, Cooperative Lungs: Clear to Auscultation, Normal Respiratory Effort Cardiovascular: Regular Rate, Regular Rhythm GI/Abdominal Exam: Soft, Non-Tender Genitourinary: Normal external exam Extremities: Normal Inspection Skin: Warm, Dry, Intact - Patient Data Result Diagrams: 05/14/20 04:45 - Problem List (1) 39 weeks gestation of SNOMED Code(s): 46995439 ICD Code: Z3A.39 - 39 WEEKS GESTATION OF Status: Acute Current Visit: No (2) Normal labor SNOMED Code(s): 07922740 ICD Code: O80 - ENCOUNTER FOR FULL-TERM UNCOMPLICATED DELIVERY; Z37.9 - OUTCOME OF DELIVERY, UNSPECIFIED Status: Acute Current Visit: No (3) Rh negative state in antepartum period SNOMED Code(s): 988188348 ICD Code: O09.899 - SUPERVISION OF OTHER HIGH RISK PREGNANCIES, UNSP TRIMESTER; Z67.91 - UNSPECIFIED BLOOD TYPE, RH NEGATIVE Status: Acute Current Visit: No Problem List Initiated/Reviewed/Updated: Yes Orders Last 24hrs: Active Orders 24 hr Category Date Time Status Patient Status [ADT] Routine ADT 05/14/20 04:34 Active Activity as Tolerated [RC] PFP Care 05/14/20 04:34 Active Communication Order [RC] ASDIRECTED Care 05/14/20 04:34 Active Heart Tones [RC] ASDIRECTED Care 05/14/20 04:34 Active Non Stress Test [RC] PER UNIT ROUTINE Care 05/14/20 04:18 Active Notify Provider [RC] PFP Care 05/14/20 04:34 Active Notify Provider [RC] PRN Care 05/14/20 04:34 Active Peripheral IV Care [RC] . DIRECTED Care 05/14/20 04:34 Active Vital Signs [RC] PER UNIT ROUTINE Care 05/14/20 04:18 Active BLOOD BANK HOLD SPECIMEN [BBK] Stat Lab 05/14/20 04:33 Ordered CBC WITH AUTO DIFF [HEME] Stat Lab 05/14/20 04:45 Received CORONAVIRUS COVID-19 RAPID [MOLEC] Stat Lab 05/14/20 04:42 Received RAPID PLASMA REAGIN,RPR [CHEM] Routine Lab 05/14/20 04:45 Received Lactated Ringers [Ringers, Lactated] 1,000 ml Med 05/14/20 04:45 Active IV ASDIRECTED Nalbuphine [Nubain] Med 05/14/20 04:33 Active 10 mg IVPUSH Q2H PRN Ondansetron [Zofran] Med 05/14/20 04:33 Active 4 mg IVPUSH Q4H PRN Oxytocin/Lactated Ringers [Pitocin in LR 10 Units/1,000 Med 05/14/20 04:45 Active ML] 10 unit in 1,000 ml IV .CONTINUOUS Sodium Chloride 0.9% [Saline Flush] Med 05/14/20 04:33 Active 10 ml FLUSH ASDIRECTED PRN Electronic Heart Tones Ext w TOCO [WOMSER] Oth 05/14/20 04:34 Ordered Routine Electronic Heart Tones Internal [WOMSER] Per Unit Oth 05/14/20 04:34 Ordered Routine Peripheral IV Insertion Adult [OM.PC] Routine Oth 05/14/20 04:34 Ordered Resuscitation Status Routine Resus Stat 05/14/20 04:18 Ordered Medication Orders Lactated Ringer's (Ringers, Lactated) 1,000 mls @ 100 mls/hr IV ASDIRECTED BRAYAN Oxytocin/Lactated Ringer's (Pitocin In Lr 10 Units/1,000 Ml) 10 unit in 1,000 mls @ 500 mls/hr IV .CONTINUOUS BRAYAN Nalbuphine HCl (Nubain) 10 mg IVPUSH Q2H PRN PRN Reason: Pain Ondansetron HCl (Zofran) 4 mg IVPUSH Q4H PRN PRN Reason: Nausea/Vomiting Sodium Chloride (Saline Flush) 10 ml FLUSH ASDIRECTED PRN PRN Reason: Keep Vein Open Assessment/Plan Comment:: * Labs * GBS negative, no need for antibiotics * Epidural to be done * Anticipate * Assess baby blood type after delivery to see if additional Rhogam required
[2020-05-14] MEDS: Lactated Ringers 1,000 ML IV SCH ×2 (05:00→05:41)
[2020-05-14] MEDS ORDERED: fentaNYL 100 MCG/2 ML SDV EPIDUR PRN (05:10)
[2020-05-14] MEDS ORDERED: diphenhydrAMINE 50 MG/ML SDV IVPUSH PRN (05:10)
[2020-05-14] MEDS ORDERED: ePHEDrine 50 MG/ML SDV IVPUSH PRN (05:10)
[2020-05-14] MEDS ORDERED: Bupivacaine/fentaNYL/NS 100 ML Bag EPIDUR PRN (05:10)
[2020-05-14] MEDS ORDERED: fentaNYL 100 MCG/2 ML SDV ONE (05:25)
--- NOTE | 2020-05-14 05:52 | PCM.PREANE ---
Preanesthetic Assessment - Procedure Proposed Procedure: Labor Epidural - Anesthesia/Transfusion/Family Hx Anesthesia History: Prior Anesthesia Without Reaction Family History of Anesthesia Reaction: No Transfusion History: No Prior Transfusion(s) - Review of Systems General: No Symptoms Pulmonary: No Symptoms Cardiovascular: No Symptoms Gastrointestinal: No Symptoms Neurological: No Symptoms Other: Reports: None - Physical Assessment Vital Signs: Last Vital Signs Temp 36.4 C 05/14/20 04:18 Pulse 77 05/14/20 04:18 Resp 14 05/14/20 04:18 BP 127/77 05/14/20 04:18 Pulse Ox Height: 1.75 m Weight: 77.7 kg ASA Class: 2 Mental Status: Alert & Oriented x3 Airway Class: Mallampati = 1 Dentition: Reports: Normal Dentition Thyro-Mental Finger Breadths: 3 Mouth Opening Finger Breadths: 3 ROM/Head Extension: Full Lungs: Clear to Auscultation, Normal Respiratory Effort Cardiovascular: Regular Rate, Regular Rhythm - Lab Values: Laboratory Last Values WBC 11.62 K/mm3 (3.98-10.04) H 05/14/20 04:45 RBC 4.29 M/mm3 (3.98-5.22) 05/14/20 04:45 Hgb 12.3 gm/dl (11.2-15.7) D 05/14/20 04:45 Hct 37.1 % (34.1-44.9) 05/14/20 04:45 MCV 86.5 fl (79.4-94.8) D 05/14/20 04:45 MCH 28.7 pg (25.6-32.2) 05/14/20 04:45 MCHC 33.2 g/dl (32.2-35.5) 05/14/20 04:45 RDW Std Deviation 41.0 fL (36.4-46.3) 05/14/20 04:45 Plt Count 292 K/mm3 (182-369) 05/14/20 04:45 MPV 9.1 fl (9.4-12.3) L 05/14/20 04:45 Neut % (Auto) 71.3 % (34.0-71.1) H 05/14/20 04:45 Lymph % (Auto) 16.6 % (19.3-51.7) L 05/14/20 04:45 Crawford % (Auto) 9.8 % (4.7-12.5) 05/14/20 04:45 Eos % (Auto) 1.5 (0.7-5.8) 05/14/20 04:45 Baso % (Auto) 0.3 % (0.1-1.2) 05/14/20 04:45 Neut # (Auto) 8.28 K/mm3 (1.56-6.13) H 05/14/20 04:45 Lymph # (Auto) 1.93 K/mm3 (1.18-3.74) 05/14/20 04:45 Crawford # (Auto) 1.14 K/mm3 (0.24-0.36) H 05/14/20 04:45 Eos # (Auto) 0.18 K/mm3 (0.04-0.36) 05/14/20 04:45 Baso # (Auto) 0.03 K/mm3 (0.01-0.08) 05/14/20 04:45 COVID-19 ([facility]) Negative (NEGATIVE) 05/14/20 04:42 - Allergies Allergies/Adverse Reactions: Allergies Allergy/AdvReac Type Severity Reaction Status Date / Time No Known Allergies Allergy Verified 05/14/20 04:19 - Acknowledgements Anesthesia Type Planned: Epidural Pt an Appropriate Candidate for the Planned Anesthesia: Yes Alternatives and Risks of Anesthesia Discussed w Pt/Guardian: Yes Pt/Guardian Understands and Agrees with Anesthesia Plan: Yes PreAnesthesia Questionnaire Gastrointestinal History: Reports: GERD 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: , 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 , 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 Psychiatric History: Reports: Depression, Eating Disorders - Past Surgical History HEENT Surgical History: Reports: Oral Surgery Female Surgical History: Reports: D&C - SUBSTANCE USE Smoking Status *Q: Never Smoker Recreational Drug Use History: No - HOME MEDS Home Medications: Home Meds Docusate Sodium [Colace] 100 mg PO BID PRN cap 04/14/18 [Rx] Ibuprofen [Motrin] 600 mg PO Q6H PRN tablet 04/14/18 [Rx] witch Nikki [Tucks] 1 pad TOP ASDIRECTED PRN pad 04/14/18 [Rx] - CURRENT (IN HOUSE) MEDS Current Meds: Current Medications Diphenhydramine HCl (Benadryl) 25 mg IVPUSH Q6H PRN PRN Reason: pruritis Ephedrine Sulfate (Ephedrine Sulfate) 5 mg IVPUSH ASDIRECTED PRN PRN Reason: Hypotension Fentanyl (Sublimaze) 100 mcg EPIDUR Q3H PRN PRN Reason: Pain Last Admin: 05/14/20 05:33 Dose: 100 mcg Documented by: Fentanyl/Bupivacaine HCl (Fentanyl/Bupivacaine/Ns 2 Mcg-0.125% 100 Ml) 100 ml EPIDUR ASDIRECTED PRN PRN Reason: Pain Last Admin: 05/14/20 05:33 Dose: 100 ml Documented by: Lactated Ringer's (Ringers, Lactated) 1,000 mls @ 100 mls/hr IV ASDIRECTED BRAYAN Last Admin: 05/14/20 05:41 Dose: 100 mls/hr Documented by: Oxytocin/Lactated Ringer's (Pitocin In Lr 10 Units/1,000 Ml) 10 unit in 1,000 mls @ 500 mls/hr IV .CONTINUOUS BRAYAN Nalbuphine HCl (Nubain) 10 mg IVPUSH Q2H PRN PRN Reason: Pain Ondansetron HCl (Zofran) 4 mg IVPUSH Q4H PRN PRN Reason: Nausea/Vomiting Sodium Chloride (Saline Flush) 10 ml FLUSH ASDIRECTED PRN PRN Reason: Keep Vein Open Discontinued Medications Fentanyl (Sublimaze) Confirm Administered Dose 100 mcg .ROUTE .STK-MED ONE Stop: 05/14/20 05:26 Last Admin: 05/14/20 05:34 Dose: Not Given Documented by:
--- NOTE | 2020-05-14 08:29 | PCM.DEL ---
L & D Note - General Info Date of Service: 05/14/20 - Delivery Note Labor: Spontaneous Delivery Outcome: Livebirth Delivery Method: Spontaneous Vaginal Delivery-Single Delivery Mode: Spontaneous Presentation: Left Occiput Anterior (LOLY) Nuchal Cord: None Anesthesia Type: Epidural Amniotic Fluid Description: Clear Episiotomy Type: None Laceration: None Placenta: Intact, Spontaneous Cord: 3 Vessels, True Knot Estimated Blood Loss: 100 Resuscitation Needed: Yes : Bulb Syringe, Stimulated, Warmed, Daisy Used, Warmer Used Delivery Comments (Free Text/Narrative):: Patient found to be complete and began pushing. With maternal pushing effort head delivered from LOLY presentation. No nuchal cord present. With gentle downward traction the shoulders and body delivered. placed on maternal abdomen. Cord clamped and cut. Cord blood obtained. Placenta al lowed time to separate and expelled intact. Inspection of the perineum following delivery showed no lacerations - General Info Date of Service: 05/14/20 - Patient Data Vitals - Most Recent: Last Vital Signs Temp 36.4 C 05/14/20 04:18 Pulse 77 05/14/20 04:18 Resp 14 05/14/20 04:18 BP 127/77 05/14/20 04:18 Pulse Ox Weight - Most Recent: 77.7 kg I&O - Last 24 Hours: Intake & Output 05/13/20 05/14/20 05/14/20 22:59 06:59 14:59 Intake Total 1000 Balance 1000 - Problem List & Annotations (1) 39 weeks gestation of SNOMED Code(s): 60339737 Code(s): Z3A.39 - 39 WEEKS GESTATION OF Status: Acute Current Visit: No (2) Normal labor SNOMED Code(s): 51511972 Code(s): O80 - ENCOUNTER FOR FULL-TERM UNCOMPLICATED DELIVERY; Z37.9 - OUTCOME OF DELIVERY, UNSPECIFIED Status: Acute Current Visit: No (3) Rh negative state in antepartum period SNOMED Code(s): 854495167 Code(s): O09.899 - SUPERVISION OF OTHER HIGH RISK PREGNANCIES, UNSP TRIMESTER; Z67.91 - UNSPECIFIED BLOOD TYPE, RH NEGATIVE Status: Acute Current Visit: No (4) Vaginal delivery SNOMED Code(s): 392111738 Code(s): O80 - ENCOUNTER FOR FULL-TERM UNCOMPLICATED DELIVERY Status: Acute Current Visit: Yes - Problem List Review Problem List Initiated/Reviewed/Updated: Yes - My Orders Last 24 Hours: My Active Orders 05/14/20 04:18 Vital Signs [RC] PER UNIT ROUTINE Resuscitation Status Routine 05/14/20 04:33 BLOOD BANK HOLD SPECIMEN [BBK] Stat Nalbuphine [Nubain] 10 mg IVPUSH Q2H PRN Ondansetron [Zofran] 4 mg IVPUSH Q4H PRN Sodium Chloride 0.9% [Saline Flush] 10 ml FLUSH ASDIRECTED PRN 05/14/20 04:34 Patient Status [ADT] Routine Activity as Tolerated [RC] PFP Communication Order [RC] ASDIRECTED Heart Tones [RC] ASDIRECTED Notify Provider [RC] PFP Notify Provider [RC] PRN Peripheral IV Care [RC] . DIRECTED Electronic Heart Tones Ext w TOCO [WOMSER] Routine Electronic Heart Tones Internal [WOMSER] Per Unit Routine Peripheral IV Insertion Adult [OM.PC] Routine 05/14/20 04:45 RAPID PLASMA REAGIN,RPR [CHEM] Routine Lactated Ringers [Ringers, Lactated] 1,000 ml IV ASDIRECTED Oxytocin/Lactated Ringers [Pitocin in LR 10 Units/1,000 ML] 10 unit in 1,000 ml IV .CONTINUOUS - Assessment Assessment:: PPD#0 - Plan Plan:: * Routine cares * Breast feeding * Discharge home in 1-2 days * Assess baby blood type after delivery to see if additional Rhogam required
[2020-05-14] MEDS ORDERED: Acetaminophen 325 MG Tab PO PRN (09:22)
[2020-05-14] MEDS ORDERED: Ibuprofen 600 MG Tab PO PRN (09:22)
[2020-05-14] MEDS ORDERED: Benzocaine/Menthol 20%-0.5% Spray 56 GM Canister TOP PRN (09:22)
[2020-05-14] MEDS ORDERED: Witch Hazel Medicated Pads 40/Jar TOP PRN (09:22)
--- NOTE | 2020-05-15 06:47 | PCM.PNPP ---
- General Info Date of Service: 05/15/20 Functional Status: Reports: Pain Controlled, Tolerating Diet, Ambulating, Urinating - Review of Systems General: Reports: No Symptoms Pulmonary: Reports: No Symptoms Cardiovascular: Reports: No Symptoms Gastrointestinal: Reports: No Symptoms Genitourinary: Reports: No Symptoms Musculoskeletal: Reports: No Symptoms Neurological: Reports: No Symptoms - Patient Data Vital Signs - Most Recent: Last Vital Signs Temp 36.5 C 05/14/20 20:33 Pulse 58 L 05/14/20 20:33 Resp 14 05/14/20 20:33 BP 127/77 05/14/20 20:33 Pulse Ox 99 05/14/20 20:33 Weight - Most Recent: 77.7 kg I&O - Last 24 Hours: Intake & Output 05/14/20 05/14/20 05/15/20 14:59 22:59 06:59 Intake Total 1300 0 Balance 1300 0 Lab Results - Last 24 Hours: Laboratory Results - last 24 hr 05/14/20 05/14/20 Range/Units 04:45 11:20 RPR Non-reactive (NONREACTIVE) Blood Type O NEGATIVE Gel Antibody Screen Positive Screen 0 ros/5 flds - neg RhIG Candidate? Yes Rhogam Indicated Yes, baby rh pos H Med Orders - Current: Current Medications Acetaminophen (Tylenol) 650 mg PO Q4H PRN PRN Reason: mild pain or fever Benzocaine/Menthol (Dermoplast Pain Relief [place]) 0 gm TOP ASDIRECTED PRN PRN Reason: Perineal Comfort Measure Ibuprofen (Motrin) 600 mg PO Q6H PRN PRN Reason: Mild pain or fever Last Admin: 05/15/20 00:30 Dose: 600 mg [facility]ed [facility]: [facility] 1 pad TOP ASDIRECTED PRN PRN Reason: Perineal Comfort Measure Discontinued Medications Bupivacaine HCl (Sensorcaine-Mpf 0.25%) 10 ml .ROUTE .STK-MED ONE Stop: 05/14/20 00:01 Diphenhydramine HCl (Benadryl) 25 mg IVPUSH Q6H PRN PRN Reason: pruritis Ephedrine Sulfate (Ephedrine Sulfate) 5 mg IVPUSH ASDIRECTED PRN PRN Reason: Hypotension Fentanyl (Sublimaze) 100 mcg EPIDUR Q3H PRN PRN Reason: Pain Last Admin: 05/14/20 05:33 Dose: 100 mcg Documented by: Fentanyl (Sublimaze) Confirm Administered Dose 100 mcg .ROUTE .STK-MED ONE Stop: 05/14/20 05:26 Last Admin: 05/14/20 05:34 Dose: Not Given Documented by: Fentanyl/Bupivacaine HCl (Fentanyl/Bupivacaine/Ns 2 Mcg-0.125% 100 Ml) 100 ml EPIDUR ASDIRECTED PRN PRN Reason: Pain Last Admin: 05/14/20 05:33 Dose: 100 ml Documented by: Lactated Ringer's (Ringers, Lactated) 1,000 mls @ 100 mls/hr IV ASDIRECTED BRAYAN Last Admin: 05/14/20 05:41 Dose: 100 mls/hr Documented by: Oxytocin/Lactated Ringer's (Pitocin In Lr 10 Units/1,000 Ml) 10 unit in 1,000 mls @ 500 mls/hr IV .CONTINUOUS BRAYAN Last Admin: 05/14/20 08:13 Dose: 500 mls/hr Documented by: Nalbuphine HCl (Nubain) 10 mg IVPUSH Q2H PRN PRN Reason: Pain Ondansetron HCl (Zofran) 4 mg IVPUSH Q4H PRN PRN Reason: Nausea/Vomiting Sodium Chloride (Saline Flush) 10 ml FLUSH ASDIRECTED PRN PRN Reason: Keep Vein Open - Interaction Infant Disposition, : in Room with Family Interaction: Holding Infant Feeding: Breastfed Infant; Nursed Well Support Person: - Recovery Exam Fundal Tone: Firm Fundal Level: 2 Fingerbreadths Below Umbilicus Fundal Placement: Midline Lochia Amount: Small Lochia Color: Rubra/Red Perineum Description: Intact, Minimal Bruising/Swelling Episiotomy/Laceration: None Bladder Status: Voiding - Exam General: Alert, Oriented, Cooperative GI/Abdominal Exam: Soft Extremities: Normal Inspection Skin: Warm, Dry, Intact - Problem List & Annotations (1) 39 weeks gestation of SNOMED Code(s): 33351315 Code(s): Z3A.39 - 39 WEEKS GESTATION OF Status: Acute (2) Normal labor SNOMED Code(s): 51407646 Code(s): O80 - ENCOUNTER FOR FULL-TERM UNCOMPLICATED DELIVERY; Z37.9 - OUTCOME OF DELIVERY, UNSPECIFIED Status: Acute (3) Rh negative state in antepartum period SNOMED Code(s): 036605097 Code(s): O09.899 - SUPERVISION OF OTHER HIGH RISK PREGNANCIES, UNSP TRIMESTER; Z67.91 - UNSPECIFIED BLOOD TYPE, RH NEGATIVE Status: Acute (4) Vaginal delivery SNOMED Code(s): 318490417 Code(s): O80 - ENCOUNTER FOR FULL-TERM UNCOMPLICATED DELIVERY Status: Acute - Problem List Review Problem List Initiated/Reviewed/Updated: Yes - My Orders Last 24 Hours: My Active Orders 05/14/20 Breakfast Regular Diet [DIET] 05/14/20 09:22 Acetaminophen [Tylenol] 650 mg PO Q4H PRN Benzocaine/Menthol [Dermoplast Pain Relief [place]] See Dose Instructions TOP ASDIRECTED PRN Ibuprofen [Motrin] 600 mg PO Q6H PRN witch Nikki [Tucks] 1 pad TOP ASDIRECTED PRN Heat Therapy [OM.PC] PRN 05/14/20 09:22 Activity as Tolerated [RC] PER UNIT ROUTINE Vital Signs [RC] 03,09,15,21 Assess Lochia [WOMSER] Per Unit Routine Assess Uterine Involution [WOMSER] Per Unit Routine Breast Pump [WOMSER] Per Unit Routine Ice Therapy [OM.PC] Per Unit Routine Perineal Care [OM.PC] Per Unit Routine Peripheral IV Discontinue [OM.PC] Routine Sitz Bath [OM.PC] Per Unit Routine 05/14/20 11:20 ANTIBODY IDENTIFICATION [BBK] Routine SCREEN [BBK] Routine RH IMMUNE GLOBULIN [BBK] Routine RHOGAM, [RHIG WORKUP, ] [BBK] Routine 05/15/20 06:47 Ready for Discharge [RC] PER UNIT ROUTINE 05/15/20 09:22 Heat Therapy [OM.PC] PRN - Assessment Assessment:: PPD#1 - Plan Plan:: * Routine cares * Breast feeding * Discharge home today * Was given Rhogam
--- NOTE | 2020-05-15 06:48 | PCM.DCSUM1 ---
Discharge Summary - Discharge Data Discharge Date: 05/15/20 Discharge Disposition: Home, Self-Care 01 Condition: Good - Referral to Home Health Primary Care Physician: Maura Mena MD - Discharge Diagnosis/Problem(s) (1) 39 weeks gestation of SNOMED Code(s): 98296535 ICD Code: Z3A.39 - 39 WEEKS GESTATION OF Status: Acute (2) Normal labor SNOMED Code(s): 36348742 ICD Code: O80 - ENCOUNTER FOR FULL-TERM UNCOMPLICATED DELIVERY; Z37.9 - OUTCOME OF DELIVERY, UNSPECIFIED Status: Acute (3) Rh negative state in antepartum period SNOMED Code(s): 753088354 ICD Code: O09.899 - SUPERVISION OF OTHER HIGH RISK PREGNANCIES, UNSP TRIMESTER; Z67.91 - UNSPECIFIED BLOOD TYPE, RH NEGATIVE Status: Acute (4) Vaginal delivery SNOMED Code(s): 524602223 ICD Code: O80 - ENCOUNTER FOR FULL-TERM UNCOMPLICATED DELIVERY Status: Acute - Patient Summary/Data Complications: None Consults: None Recommended Follow-up Testing/Procedures: Follow up in 2-3 weeks for check Hospital Course: 24 y/o at 39 3/7 wks who presented in labor. She progressed well to complete dilation and underwent an uncomplicated . See delivery note. she did well and was discharged home on PPD#1 - Patient Instructions Diet: Regular Diet as Tolerated Activity: As Tolerated Activity, Other: Pelvic rest for 6 weeks Driving: May Drive Today Showering/Bathing: May Shower Showering/Bathing, Other: May Bathe Notify Provider of: Fever, Increased Pain, Swelling and Redness, Drainage, Nausea and/or Vomiting - Discharge Plan *PRESCRIPTION DRUG MONITORING PROGRAM REVIEWED*: No *COPY OF PRESCRIPTION DRUG MONITORING REPORT IN PATIENT [place]: No Home Medications: Home Meds Docusate Sodium [Colace] 100 mg PO BID PRN cap 04/14/18 [Rx] Ibuprofen [Motrin] 600 mg PO Q6H PRN tablet 04/14/18 [Rx] Patient Handouts: Care After Vaginal Delivery Referrals: Maura Mena MD [Primary Care Provider] - (3 weeks check ) - Discharge Summary/Plan Comment DC Time >30 min.: No - Patient Data Vitals - Most Recent: Last Vital Signs Temp 36.5 C 05/14/20 20:33 Pulse 58 L 05/14/20 20:33 Resp 14 05/14/20 20:33 BP 127/77 05/14/20 20:33 Pulse Ox 99 05/14/20 20:33 Weight - Most Recent: 77.7 kg I&O - Last 24 hours: Intake & Output 05/14/20 05/14/20 05/15/20 14:59 22:59 06:59 Intake Total 1300 0 Balance 1300 0 Lab Results - Last 24 hrs: Laboratory Results - last 24 hr 05/14/20 05/14/20 Range/Units 04:45 11:20 RPR Non-reactive (NONREACTIVE) Blood Type O NEGATIVE Gel Antibody Screen Positive Screen 0 ros/5 flds - neg RhIG Candidate? Yes Rhogam Indicated Yes, baby rh pos H Med Orders - Current: Current Medications Acetaminophen (Tylenol) 650 mg PO Q4H PRN PRN Reason: mild pain or fever Benzocaine/Menthol (Dermoplast Pain Relief [place]) 0 gm TOP ASDIRECTED PRN PRN Reason: Perineal Comfort Measure Ibuprofen (Motrin) 600 mg PO Q6H PRN PRN Reason: Mild pain or fever Last Admin: 05/15/20 00:30 Dose: 600 mg [facility]: [facility] 1 pad TOP ASDIRECTED PRN PRN Reason: Perineal Comfort Measure Discontinued Medications Bupivacaine HCl (Sensorcaine-Mpf 0.25%) 10 ml .ROUTE .STK-MED ONE Stop: 05/14/20 00:01 Diphenhydramine HCl (Benadryl) 25 mg IVPUSH Q6H PRN PRN Reason: pruritis Ephedrine Sulfate (Ephedrine Sulfate) 5 mg IVPUSH ASDIRECTED PRN PRN Reason: Hypotension Fentanyl (Sublimaze) 100 mcg EPIDUR Q3H PRN PRN Reason: Pain Last Admin: 05/14/20 05:33 Dose: 100 mcg Documented by: Fentanyl (Sublimaze) Confirm Administered Dose 100 mcg .ROUTE .STK-MED ONE Stop: 05/14/20 05:26 Last Admin: 05/14/20 05:34 Dose: Not Given Documented by: Fentanyl/Bupivacaine HCl (Fentanyl/Bupivacaine/Ns 2 Mcg-0.125% 100 Ml) 100 ml EPIDUR ASDIRECTED PRN PRN Reason: Pain Last Admin: 05/14/20 05:33 Dose: 100 ml Documented by: Lactated Ringer's (Ringers, Lactated) 1,000 mls @ 100 mls/hr IV ASDIRECTED BRAYAN Last Admin: 05/14/20 05:41 Dose: 100 mls/hr Documented by: Oxytocin/Lactated Ringer's (Pitocin In Lr 10 Units/1,000 Ml) 10 unit in 1,000 mls @ 500 mls/hr IV .CONTINUOUS BRAYAN Last Admin: 05/14/20 08:13 Dose: 500 mls/hr Documented by: Nalbuphine HCl (Nubain) 10 mg IVPUSH Q2H PRN PRN Reason: Pain Ondansetron HCl (Zofran) 4 mg IVPUSH Q4H PRN PRN Reason: Nausea/Vomiting Sodium Chloride (Saline Flush) 10 ml FLUSH ASDIRECTED PRN PRN Reason: Keep Vein Open
--- NOTE | 2020-05-15 08:48 | PCM48HPAN ---
Post Anesthesia Note - EVALUATION WITHIN 48HRS OF ANESTHETIC Vital Signs in Normal Range: Yes Patient Participated in Evaluation: Yes Respiratory Function Stable: Yes Airway Patent: Yes Cardiovascular Function Stable: Yes Hydration Status Stable: Yes Pain Control Satisfactory: Yes Nausea and Vomiting Control Satisfactory: Yes Mental Status Recovered: Yes Vital Signs: Last Vital Signs Temp 36.5 C 05/14/20 20:33 Pulse 58 L 05/14/20 20:33 Resp 14 05/14/20 20:33 BP 127/77 05/14/20 20:33 Pulse Ox 99 05/14/20 20:33
== END 2020-05-15 10:25 | disposition home or self-care (01) | DRG 560 ==
LOC: JD.OBCHECK 04:03 → JD.OB 04:11 → JD.OBCHECK 04:45 → OBSVTOIN 08:13 → JD.OB 08:14
PROVIDERS: ADMIT Obstetrics & Gynecology; ATTEND Obstetrics & Gynecology
PROC: 10E0XZZ Delivery of Products of Conception, External Approach (ICD-10-PCS; principal; 2020-05-14)
PROC: 3E0R3BZ Introduction of Anesthetic Agent into Spinal Canal, Percutaneous Approach (ICD-10-PCS; 2020-05-14)
PROC: 00HU33Z Insertion of Infusion Device into Spinal Canal, Percutaneous Approach (ICD-10-PCS; 2020-05-14)
PROC: 3E0334Z Introduction of Serum, Toxoid and Vaccine into Peripheral Vein, Percutaneous Approach (ICD-10-PCS; 2020-05-14)
DX: O99.62 Diseases of the digestive system complicating childbirth (principal); K21.9 Gastro-esophageal reflux disease without esophagitis; Z37.0 Single live birth; Z3A.39 39 weeks gestation of pregnancy; Z11.59 Encounter for screening for other viral diseases; O26.893 Other specified pregnancy related conditions, third trimester; Z67.41 Type O blood, Rh negative
CPT/HCPCS: 01967; 36415; 51701; 59025; 59409; 85025; 85461; 86592; 86850; 86870; 86900; 86901; A9270-GY; J2590; J2790; J3010; J3490; J7120; U0002

== ENCOUNTER 2022-05-13 10:35 | Inpatient (IN) | payer BC ==
[2022-05-13] MEDS ORDERED: Nalbuphine HCl 10 MG/ 1ML Amp IVPUSH PRN (15:00)
[2022-05-13] MEDS ORDERED: Calcium Carbonate 500 MG Tab.Chew PO PRN (15:00)
[2022-05-13] MEDS ORDERED: Acetaminophen 325 MG Tab PO PRN ×2 (15:00→19:08)
[2022-05-13] MEDS ORDERED: Lidocaine 1% 50 ML MDV INJECT ONE (15:00)
[2022-05-13] MEDS ORDERED: Ondansetron 4 MG/2 ML SDV IVPUSH PRN (15:00)
[2022-05-13] MEDS ORDERED: Oxytocin/Lactated Ringers 10 UNIT/1,000 ML BAG IV SCH ×2 (15:00)
[2022-05-13] MEDS ORDERED: fentaNYL 100 MCG/2 ML SDV EPIDUR PRN (16:32)
[2022-05-13] MEDS ORDERED: diphenhydrAMINE 50 MG/ML SDV IVPUSH PRN (16:32)
[2022-05-13] MEDS ORDERED: ePHEDrine 50 MG/ML SDV IVPUSH PRN (16:32)
[2022-05-13] MEDS ORDERED: Bupivacaine/fentaNYL/NS 100 ML Bag EPIDUR PRN (16:32)
[2022-05-13] MEDS: Lactated Ringers 1,000 ML IV SCH ×2 (16:55→16:58)
[2022-05-13] MEDS ORDERED: Benzocaine/Menthol 20%-0.5% Spray 78 GM Cannister TOP PRN (19:08)
[2022-05-13] MEDS ORDERED: Witch Hazel Medicated Pads 40/Jar TOP PRN (19:08)
[2022-05-13] MEDS ORDERED: Docusate Sodium 100 MG Cap PO PRN (19:08)
[2022-05-13] MEDS ORDERED: Ibuprofen 600 MG Tab PO PRN (19:08)
[2022-05-13] MEDS ORDERED: Sodium Chloride 0.9% 10 ML Syringe FLUSH SCH (21:00)
[2022-05-14] MEDS ORDERED: Prenatal Multivitamin with Calcium/Folic Acid/Iron Tab PO SCH (09:00)
[2022-05-14] MEDS ORDERED: FLUoxetine 20 MG Cap PO SCH (09:00)
== END 2022-05-14 18:30 | disposition home or self-care (01) | DRG 560 ==
LOC: JD.OBCHECK 10:35 → JD.OB 10:38 → OBSVTOIN 14:40 → JD.OB 14:40 → INTOOBSV 14:40 → JD.OBCHECK 14:40 → JD.OB 19:16
PROVIDERS: ADMIT Obstetrics & Gynecology; ATTEND Obstetrics & Gynecology
PROC: 10E0XZZ Delivery of Products of Conception, External Approach (ICD-10-PCS; principal; 2022-05-13)
PROC: 10907ZC Drainage of Amniotic Fluid, Therapeutic from Products of Conception, Via Natural or Artificial Opening (ICD-10-PCS; 2022-05-13)
PROC: 3E0R3BZ Introduction of Anesthetic Agent into Spinal Canal, Percutaneous Approach (ICD-10-PCS; 2022-05-13)
DX: O80 Encounter for full-term uncomplicated delivery (principal); Z3A.37 37 weeks gestation of pregnancy; Z37.0 Single live birth; Z67.41 Type O blood, Rh negative
CPT/HCPCS: 36415; 36430; 59025; 59409; 85025; 85461; 86592; 86850; 86870; 86900; 86901; A9270-GY; J2590; J2790; J3010; J3490; J7120